=== PATIENT | female | born 1990 | race African-American/Black ===

== ENCOUNTER 2021-12-17 19:24 | Emergency (ER) | payer OTHER ==
[~2021-12-17] VITALS: Ht 162.6 cm; Wt 60.3 kg
--- NOTE | 2021-12-17 20:40 | NUR ---
patient states that she is not having any s/i or h/i at the moment and wants to go home. notified
--- NOTE | 2021-12-17 20:44 | NUR ---
Patient discharged to home in stable condition. Written and verbal after care instructions given. Patient verbalizes understanding of instruction.
[2021-12-17 20:46] VITALS: BP 126/67
== END 2021-12-17 20:46 | disposition home or self-care (01) ==
LOC: ER 19:33
DX: F32.A Depression, unspecified (principal); Z60.2 Problems related to living alone